=== PATIENT | female | born 1970 | race Caucasian/White ===

== ENCOUNTER 2020-05-28 07:48 | Outpatient (CLI) | payer OTHER, SELFPAY ==
--- NOTE | 2020-05-28 07:57 | MM_ITS ---
WS: [id number] BILATERAL DIGITAL SCREENING MAMMOGRAPHY WITH CAD CLINICAL INFORMATION: SCREENING HISTORY: Screening mammogram. No current complaints. COMPARISON: TECHNIQUE: Bilateral CC and MLO views. FINDINGS: Scattered fibroglandular densities bilaterally. No suspicious focal mass, asymmetry, calcifications, or architectural distortion. No evidence of malignancy. MM/[place] [id number] IMPRESSION: BI-RADS: 1-Negative FOLLOW UP: 1 Year Follow-up Recommend return to annual screening mammography.
== END 2020-05-28 07:49 | disposition home or self-care (01) ==
LOC: RADSHAW 07:50
PROVIDERS: Visit Provider Nurse Practitioner Family
DX: Z12.31 Encounter for screening mammogram for malignant neoplasm of breast (principal)
CPT/HCPCS: 77067

== ENCOUNTER 2020-08-02 18:16 | Outpatient (CLI) | payer SELFPAY ==
[2020-08-02 19:35] LABS: Basophils # 0.1 10^3/uL (0.0-0.1); Basophils % 0.6 %; Eosinophils # 0.1 10^3/uL (0.0-0.8); Hematocrit 44.5 % (37.0-47.0); Hemoglobin 14.6 g/dL (11.5-15.3); Lymphocytes # 3.3 10^3/uL (0.8-4.8); Lymphocytes % 25.8 %; Mean Corpuscular HGB Conc 32.8 g/dL (30.0-36.0); Mean Corpuscular Hemoglobin 29.6 pg (28.0-34.0); Mean Corpuscular Volume 90.1 fL (81-99); Mean Platelet Volume 9.7 fL (7.4-10.4); Monocytes # 0.9 10^3/uL (0.2-0.9); Monocytes % 7.2 %; Neutrophils # 8.26 10^3/uL (1.8-7.7); Neutrophils % 65.1 %; Nucleated Red Blood Cells % 0 %; Platelet Count 368 10^3/cmm (130-400); Red Blood Count 4.94 10^6/uL (4.1-5.3); Red Cell Distribution Width 11.8 % (12.1-15.1); White Blood Count 12.7 10^3/uL (4.0-10.0)
[2020-08-02 19:56] LABS: Alanine Aminotransferase 37 U/L (0-33); Albumin Level 4.5 g/dL (3.5-5.2); Alkaline Phosphatase 79 IU/L (35-105); Anion Gap 17.5 (5-19); Aspartate Amino Transferase 24 U/L (0-32); Blood Urea Nitrogen 9 mg/dL (6-20); Calcium 9.2 mg/dL (8.5-10.5); Carbon Dioxide 21 mmol/L (22-29); Chloride 101 mmol/L (98-107); Glomerular Filtration Rate 87.9 mL/min (90-130); Glucose 97 mg/dL (65-115); Osmolality Calculated 278 mOsm/kg (285-295); Potassium 3.5 mmol/L (3.5-5.1); Sodium 136 mmol/L (136-145); Total Bilirubin 0.2 mg/dL (0.15-1.2); Total Protein 8.5 g/dL (6.6-8.7)
== END 2020-08-02 18:17 | disposition home or self-care (01) ==
LOC: LAB 18:18
PROVIDERS: Visit Provider General Practice
DX: N17.0 Acute kidney failure with tubular necrosis (principal)
CPT/HCPCS: 80053; 85025

== ENCOUNTER 2021-07-15 09:07 | Outpatient (CLI) | payer OTHER, SELFPAY ==
--- NOTE | 2021-07-15 09:13 | MM_ITS ---
WS: [id number] SCREENING DIGITAL MAMMOGRAM WITH CAD HISTORY: SCREENING COMPARISON: 05/28/2020, 01/18/2018 Bilateral CC and MLO views submitted. Computer aided detection analyzed. Breast composition: There are scattered areas of fibroglandular density. Asymmetry is new upper outer quadrant of the LEFT breast posteriorly near 2:00. This asymmetry measures 5 mm with mild irregulari ty. MM/[place] [id number] IMPRESSION: BI-RADS: 0-Incomplete: Need additional imaging evaluation FOLLOW UP: Need Additional Imaging LEFT breast: Spot compression views (CC and MLO). True ML. Ultrasound to follow if abnormality persists.
== END 2021-07-15 09:08 | disposition home or self-care (01) ==
LOC: RADSHAW 09:12
PROVIDERS: Visit Provider Family Medicine
DX: Z12.31 Encounter for screening mammogram for malignant neoplasm of breast (principal)
CPT/HCPCS: 77067

== ENCOUNTER 2021-07-17 13:17 | Outpatient (CLI) | payer OTHER, SELFPAY ==
--- NOTE | 2021-07-17 13:27 | US_ITS ---
WS: [id number] ADDITIONAL VIEWS LEFT MAMMOGRAM LEFT BREAST ULTRASOUND HISTORY: ASYMMETRY LT BREAST COMPARISON: 07/15/2021 and 05/28/2020 LEFT MAMMOGRAM: Spot compression views and true ML. 8 mm irregular nodule in the upper outer quadrant LEFT breast near 2:00 posteriorly persists with add itional views. Margins are ill-defined. No distortion. LEFT BREAST ULTRASOUND 2-D and color Doppler imaging submitted. Hypoechoic slightly spiculated mass in the LEFT breast at 2:00, 3 cm from the nipple. This mass corre sponds in size and location to the mammographic abnormality. Mass measures 6 x 6 x 6 mm. No significa nt increased vascularity. There are a few adjacent small benign lymph nodes in the upper outer quadra nt also. US/US breast LT limited* [id number] IMPRESSION: BI-RADS: 4-Suspicious Finding-Biopsy Should Be Considered FOLLOW UP: Biopsy Recommended Ultrasound-guided biopsy recommended of the LEFT breast mass at 2:00. Notified Renetta Pereira MD at 07/17/2021 2:30 PM.
== END 2021-07-17 13:18 | disposition home or self-care (01) ==
DX: N64.89 Other specified disorders of breast (principal); N63.21 Unspecified lump in the left breast, upper outer quadrant
CPT/HCPCS: 76642; 77065

== ENCOUNTER 2021-08-01 08:08 | Outpatient (CLI) | payer MEDICAID, SELFPAY ==
--- NOTE | 2021-08-01 08:28 | US_ITS ---
WS: [id number] ULTRASOUND-GUIDED LEFT BREAST BIOPSY CLINICAL INFORMATION: L BREAST MASS COMPARISON: None. FINDINGS: The procedure including risks, benefits, and complications were discussed with the patient who agreed to proceed. Using sterile technique patient was prepped and draped in the usual sterile fashion. Aft er 1% lidocaine utilizing real-time ultrasound guidance 5 14-gauge cores were obtained of the left br east lesion at the 2 o'clock position. Subsequently a titanium clip was placed in the biopsy cavity. No immediate complications. Pathology demonstrates Breast, left breast mass , ultrasound-guided biopsy: -Poorly differentiated invasive ductal carcinoma. -Messina Hoffmann grade 3 (score 8). -Breast prognostic profile has been performed. US/[place] [id number] IMPRESSION: 1. Uncomplicated ultrasound-guided left breast biopsy. 2. The pathology demonstrates POORLY DIFFERENTIATED INVASIVE DUCTAL CARCINOMA 3. Breast cancer prognostic profile pending. BI-RADS: 6-Known Biopsy-Proven Malignancy FOLLOW UP: Surgical Biopsy Recommended RECOMMEND BREAST SURGERY CONSULTATION.
[2021-08-09 08:40] LABS: Miscellaneous Test See Scanned Lab Rpt
== END 2021-08-01 08:09 | disposition home or self-care (01) ==
PROVIDERS: Visit Provider Family Medicine
DX: C50.412 Malignant neoplasm of upper-outer quadrant of left female breast (principal)
CPT/HCPCS: 19083; 88305; 88361; 88367; 88374

== ENCOUNTER → 2021-08-16 11:00 | Outpatient (BNVA) | payer MEDICAID, SELFPAY | PROVIDERS: Visit Provider Surgery | DX: C50.912 Malignant neoplasm of unspecified site of left female breast (principal); Z20.822 Contact with and (suspected) exposure to COVID-19 | CPT/HCPCS: 87635 ==

== ENCOUNTER 2021-08-22 07:29 | Day surgery (SDC) | payer MEDICAID, SELFPAY ==
[2021-08-21 12:23] VITALS: BMI 34.2
[2021-08-22] VITALS (9 sets, daily range): BP systolic 144–169; BP diastolic 79–97; PULSE 71–82; RESP 16–20; TEMP 36.4–36.9; O2SAT 94–97
--- NOTE | 2021-08-22 | US_ITS ---
WS: [id number] ULTRASOUND-GUIDED LEFT BREAST NEEDLE LOCALIZATION HISTORY: left breast mass at 2:00 Procedure, risks and complications were explained to the patient. Consent is obtained. Skin is cleansed with ChloraPrep and anesthetized with 1% buffered lidocaine. Needle and guidewire pl aced to the area of concern with no complications. Masses localized at 2:00, 3 cm from the nipple and contains a clip. Ultrasound guidance performed during the needle localization. Guidewire is left wit hin the lesion. Guidewire secured and no complications encountered. Patient is being transported to t OR suite. Specimen radiograph is also reviewed. Soft tissue lesion is present in the specimen. RECOMMENDATIONS: Follow-up with Dr. Cruz and oncology. Please see the entire pathology report for a dditional details. US/US breast surgical specimen IMPRESSION: 1. Uncomplicated wire localization of the LEFT breast mass at 2:00. PATHOLOGY RESULTS: Invasive carcinoma of the breast.
--- NOTE | 2021-08-22 08:21 | NM_ITS ---
WS: [id number] NUCLEAR MEDICINE SENTINEL LYMPH NODE IMAGING HISTORY: L Breast Lumpectomy COMPARISON: None available. TECHNIQUE: The patient was injected with 1.1 mCi of Technetium 99 ultra filtered sulfur colloid. Inje ction is intradermal in a periareolar location. Four aliquots are used. NM/NM sentinel node inject [id number] IMPRESSION: Uncomplicated LEFT breast sentinel node injection.
--- NOTE | 2021-08-22 08:36 | US_ITS ---
WS: [id number] ULTRASOUND-GUIDED LEFT BREAST NEEDLE LOCALIZATION HISTORY: left breast mass at 2:00 Procedure, risks and complications were explained to the patient. Consent is obtained. Skin is cleansed with ChloraPrep and anesthetized with 1% buffered lidocaine. Needle and guidewire pl aced to the area of concern with no complications. Masses localized at 2:00, 3 cm from the nipple and contains a clip. Ultrasound guidance performed during the needle localization. Guidewire is left wit hin the lesion. Guidewire secured and no complications encountered. Patient is being transported to t OR suite. Specimen radiograph is also reviewed. Soft tissue lesion is present in the specimen. RECOMMENDATIONS: Follow-up with Dr. Cruz and oncology. Please see the entire pathology report for a dditional details. US/[place] [id number] IMPRESSION: 1. Uncomplicated wire localization of the LEFT breast mass at 2:00. PATHOLOGY RESULTS: Invasive carcinoma of the breast.
--- NOTE | 2021-08-22 10:28 | ANES.PREANE2 ---
Pre-Anesthetic Assessment Pre-Anesthetic Assessment: Height/Weight: Height 1.55 m Weight 82.1 kg Preop Diagnosis: Left breast cancer Proposed Procedure: Operation Date: 08/22/21 11:45 Proposed Procedures p Sentinal Lymph Node Biopsy [id number] 43104 C50.912(Left) - Vitaly Cruz MD s breast lumpectomy(Left) - Vitaly Cruz MD Was Beta Ubcky taken within 24 hours: N/A Was Clonidine taken within 24 hours: N/A Last intake: Intake Last Liquid Date 08/21/21 Last Liquid Time 04:30 Last Solid Date 08/21/21 Last Solid Time 20:00 Social: Social History: No alcohol and No tobacco Exam: Pre-Anes Outpt Exam: alert, oriented x 3, clear to auscultation bilaterally and regular rate & rhythm Airway: Submandibular: WNL Cervical ROM: WNL MP: 3 Dentition: Caps History/ROS: No significant complaints Pulmonary: Pulmonary: None reported CV/HEM: CV/HEM: HTN : : None reported Hepatic: Hepatic: None reported GI: GI: None reported Metabolic: Comments: obesity Musc/skel: Musc/skel: None reported Neuropsych: Neuropsych: None reported Anesthetic Plan: ASA status: 2 Anesthesia: General PFSH Anesthesia PFSH: Medical History (Updated 08/13/21 @ 14:57 by Vitaly Cruz MD) Breast cancer, left Hypertension Social History Smoking and tobacco status: never smoked Female Reproductive History: Date of last menstrual period: 09/03/16 Data Anesthesia Cardiac Studies: No Data to Display
[2021-08-22] MEDS: sodium chloride 0.9% 1,000 ML 30 ML IV (10:43)
--- NOTE | 2021-08-22 11:03 | PC.NURSE ---
LEFT BREAST SENTINEL NODE INJECTION. 1.1 mCi Tc99m Filtered Sulfur Colloid by Dr Kaiser at 0830.
--- NOTE | 2021-08-22 11:15 | W.PM.OPSFHP ---
Same Day Surgery H&P Indication for Procedure/HPI DATE OF PROCEDURE: August 22, 2021 CHIEF COMPLAINT/INDICATIONFOR SURGICAL PROCEDURE: lumpectomy with SLNB PREOP DIAGNOSIS: Left breast cancer PLANNED PROCEDRUE: Operation Date: 08/22/21 11:45 Proposed Procedures p Sentinal Lymph Node Biopsy [id number] 26308 C50.912(Left) - Vitaly Cruz MD s breast lumpectomy(Left) - Vitaly Cruz MD Medications/Allergies* Home Medications Medication Instructions Recorded Confirmed Type diclofenac potassium 50 mg tablet 50 mg PO BID 08/13/21 08/21/21 History lisinopril 10 mg tablet 10 mg PO DAILY 08/13/21 08/22/21 History Allergies/Adverse Reactions Allergy/AdvReac Type Severity Reaction Status Date / Time codeine Allergy ALGY-Difficulty Verified 08/22/21 07:45 Breathing Current Medications: Generic Name Dose Route Start Last Admin Trade Name Freq PRN Reason Stop Dose Admin Sodium Chloride 1,000 mls @ 30 mls/hr 08/22/21 10:30 08/22/21 10:43 Sodium Chloride 0.9% IV 08/23/21 10:29 30 mls/hr .Q24H CRISTINA Administration Pertinent History/Comorbid Conditions* Medical History (Updated 08/13/21 @ 14:57 by Vitaly Cruz MD) Breast cancer, left Hypertension Social History Smoking and tobacco status: never smoked Pertinent Exam Findings alert, oriented x 3 and clear to auscultation bilaterally Recommendations Surgery/Procedure today Coding Level of Care Code Acute [employer] Processing Equipment [employer]ic for Marvin Ortiz
[2021-08-22] MEDS: lidocaine 1% INJ 20 mL XX (13:11)
--- NOTE | 2021-08-22 14:45 | PM.OP ---
Operative Report Date of procedure: August 22, 2021 Pre-op Diagnosis: Invasive ductal carcinoma left breast 2 o'clock position Post-op diagnosis: same Procedure Done: 1. Wire localization lumpectomy left breast with shave margin 2. Left axillary sentinel lymph node biopsy Specimens removed/disposition: 1. left breast lumpectomy - short stitch superior, long stitch lateral 2. Shave margins, superior, anterior, medial, posterior 3. Left axillary sentinel lymph node and small palpable lymph nodes Surgeon: Vitaly Cruz Anesthesia: General Condition: stable Disposition: PACU Procedure: The wire localization of the mammographic abnormality was performed by the radiologist under ultrasound guidance and the patient was transferred to operating room and placed under MAC after IV antibiotic had been administered. The left breast was prepped and draped in a manner . A curvilinear incision was made in the left axilla at the site marked with the gamma probe, subcutaneous tissue was divided and dissection was carried inferiorly towards the guidewire. The localization wire was grasped through the incision and using electrocautery the wire along with the breast tissue containing mammographic abnormality was dissected free from the surrounding tissue. Using 2-0 silk suture, short stitch was placed superiorly and a long stitch was placed laterally.shave margins were obtained from the lumpectomy cavity from the superior, medial, anterior and posterior aspect of the lumpectomy cavity and the outer edge was inked. Clips were applied along the edge of the lumpectomy cavity for radiation planning. A technetium sulfur colloid had been injected previously by the radiologist in the periareolar area. The subcutaneous tissue and clavipectoral fascia was divided with electrocautery and gentle dissection revealed radioactive lymph nodes. There were few palpable lymph nodes which were excised and the vascular bundle was clipped with 5 mm clips. Examination of the axilla did not reveal any other lymph nodes. 20 cc of 0.5% Marcaine mixed with 20 cc of 1% lidocaine was infiltrated around the lumpectomy cavity. The wound was irrigated with saline, hemostasis ensured with electrocautery and subcutaneous tissues approximated using 3-0 running Vicryl suture and skin was closed using running subcuticular 4-0 Monocryl sutures and Dermabond. Fluffs were used for pressure dressing. Patient was transferred to recovery room and stable condition The lumpectomy specimens were sent to mammography to obtain radiological confirmation of complete excision of the mammographic abnormality.
--- NOTE | 2021-08-22 14:48 | PC.NURSE ---
No c/o nausea. C/o 3/10 pain. Advised that she wait until a PO med in recovery. OPS nurse Nick notified and agreed that the PO med would be better than Fentanyl IV.
[2021-08-22] MEDS: HYDROcodone-acetaminophen 5-325 mg Tablet 1 TAB PO (15:20)
== END 2021-08-22 15:25 | disposition home or self-care (01) ==
PROVIDERS: Visit Provider Surgery
PROC: (CPT 19301; principal; 2021-08-22 11:45)
PROC: (CPT 19301; 2021-08-22 11:45)
DX: C50.912 Malignant neoplasm of unspecified site of left female breast (principal); I10 Essential (primary) hypertension; E66.9 Obesity, unspecified; Z68.34 Body mass index [BMI] 34.0-34.9, adult
CPT/HCPCS: 19301; 38500; 19285; 38792; 88307; 96365; A9541; C1889; J0690; J1100; J1885; J2405; J2704; J3010; J3490; J7030

== ENCOUNTER 2021-09-10 10:39 | Outpatient (CLI) | payer MEDICAID, SELFPAY ==
--- NOTE | 2021-09-10 18:20 | ONC CON_ITS ---
Dr. Gatica New Patient Note Patient: Lena Su Unit #: [id number]: 1970 Dicatated By: Alban Gatica M.D.Date of Visit: Sep 10, 2021 Onc MED New Patient/Consult Referring Physician: Dr. MARIS VALLADARES M.D. Chief Complaint: Breast cancer. History of Present Illness: This is a 51-year-old woman with grade 3 invasive ductal carcinoma of the left breast, stage IB (pT1b, pN0, M0), ER/CA negative and HER-2/lala negative. She has been in good general health. Her screening mammogram on 07/15/2021 was BI-RADS 0 with evidence of a new asymmetry in the upper outer quadrant of the left breast posteriorly at 2:00. Additional mammogram views and left breast ultrasound on 07/17/2021 were BI-RADS 4, suspicious. The mammogram showed an 8 mm irregular nodule with ill-defined margins in the upper outer quadrant of the left breast near 2:00 posteriorly. Ultrasound showed a hypoechoic slightly spiculated mass at 2:00 located 3 cm from the nipple. It measured 6 x 6 x 6 mm. Also noted were a few small benign-appearing nodes in the upper outer quadrant. Ultrasound directed biopsy of the left breast on 08/01/2021 showed grade 3 invasive ductal carcinoma. The breast prognostic profile showed ER negative at less than 1% and CA negative at less than 1%. The tumor was negative for overexpression of HER-2/lala, 1+ by IHC and amplification ratio by FISH of 1.0 with 2.6 HER-2 copies/cell. The Ki-67 was unfavorable at 60%. She was referred to Dr. Valladares and on 08/22/2021 she underwent left breast lumpectomy with axillary sentinel lymph node biopsy. Pathology on the lumpectomy showed grade 3 invasive ductal carcinoma measuring 0.7 cm in maximum diameter. The medial margin was narrowly free of invasive carcinoma by 1 to 2 mm. All other margins were greater than 5 mm. There was an extensive component of high-grade ductal carcinoma in situ involving the remainder of the lumpectomy specimen. The final margins were free of in situ carcinoma by at least 2 mm. There was no involvement in 3 lymph nodes. She is seen now for further management of the breast cancer. She says she feels fine, though she does complain that she is tired a lot. She has normal activity. ECOG score is 0. Her appetite is good and her weight has been stable. She has no fever, night sweats, or hot flashes. She had been on long-term therapy with Depo-Medrol for contraception. During that time she had no menstrual periods. It was stopped in June. She was told at that time that her test indicated that she was postmenopausal, but those reports are not available at this time. She does not complain of shortness of breath, cough, or chest pain, and she has no GI or complaints. She has no significant joint or bone pain. She has just occasional headaches. She sometimes has numbness in her hands when she first wakes up in the morning. She has no other focal neurologic symptoms. She has mild psoriasis. Past Medical History: Her medical history includes hypertension and mild psoriasis. Past Surgical History: She underwent ultrasound-guided biopsy of the left breast on 08/01/2021 and she underwent left breast lumpectomy with axillary sentinel lymph node biopsy on 08/22/2021. She has had no prior surgeries. Medications: Lisinopril 1 Tablet (of 10 mg) Oral daily Allergies: Codeine Sulfate Social History: Ms. Su is . She is a non-smoker. She does not drink alcohol. Family History: Both parents are living, father at age 85 and mother at age 74. He is being treated for prostate cancer. She has diabetes and coronary artery disease. A paternal aunt had lung cancer. There has been no other breast cancer or ovarian cancer in the family. Review Of Symptoms: Constitutional - She feels fine, but she does complain that she is tired a lot. She has normal activity. Appetite is good and weight is stable. No fever, night sweats, or hot flashes. ECOG score is 0, Eyes - No change in vision, ENMT - No hearing loss or tinnitus. No sinus congestion/drainage. No mouth sores. No sore throat or difficulty swallowing, Hematologic/Lymphatic - No abnormal bruising or bleeding, Respiratory - No shortness of breath. No cough. No pleuritic pain or hemoptysis, Cardiovascular - No angina pain. No palpitations, Gastrointestinal - No nausea or vomiting. No heartburn or acid reflux. No diarrhea or constipation. No blood in the stool or black stools, Genitourinary (F) - No dysuria or hematuria. No urinary frequency. No urgency or incontinence, Musculoskeletal - No joint or bone pain, Integumentary - She has mild psoriasis, Neurologic - She occasionally has headache. No dizziness. She occasionally has numbness in her hands when she first wakes up in the morning. No other focal neurologic symptoms, Psychiatric - No anxiety or depression. She takes NyQuil for insomnia. Vital Signs: Performed on Sep 10, 2021 11:49: 0, 0, 34.20 (HIGH), 1.81 sq.m, 61 in, 96 %, 80 /min, 16 /min, 131/85 mm(hg), 97.5 F (LOW), and 181 lbs (HIGH). Physical Examination: Constitutional - She appears to be in good general health, Eyes - Sclerae nonicteric. Conjunctivae clear, ENMT - No lesions noted in the oral cavity, Neck - No mass or thyromegaly, Hematologic/Lymphatic - No cervical or clavicular adenopathy, Respiratory - Lungs are clear with good air movement bilaterally, Cardiovascular - Heart rhythm is regular. There is no murmur, gallop, or rub noted, Breasts - The right breast shows no mass. There is a nodule palpable in the upper outer quadrant of the left breast just below the lumpectomy incision. There is no axillary adenopathy noted, Abdomen - Soft and non-tender. Liver and spleen are not enlarged. There is no abdominal mass or ascites noted and there is no inguinal adenopathy, Back/Spine - No spine or CVA tenderness noted, Extremities - No edema. Pedal pulses are palpable bilaterally, Integumentary - No suspicious skin lesions noted, Neurologic - No focal neurologic deficits noted. Problem List: 1. Grade 3 invasive ductal carcinoma of the left breast, stage IB (pT1b, pN0, M0), ER/CA negative and HER-2/lala negative. 2. Hypertension. 3. Mild psoriasis. Problems Addressed with this Encounter and Plan: Patient with grade 3 invasive ductal carcinoma of the left breast, stage IB (pT1b, pN0, M0), ER/CA negative and HER-2/lala negative. She had presented with abnormal screening mammogram. She underwent ultrasound-guided biopsy of the left breast on 08/01/2021 followed by left breast lumpectomy and axillary sentinel lymph node biopsy on 08/22/2021. The pathology findings were reviewed with the patient and we discussed the clinic complications. She has a grade 3 invasive ductal carcinoma of the left breast which is triple negative. It is a relatively small primary tumor and node-negative. We discussed the fact that adjuvant chemotherapy has been shown to prevent approximately 1/3 of breast cancer recurrences. Per NCCN guidelines, adjuvant chemotherapy would be recommended for a primary tumor greater than 1 cm. For a T1b primary adjuvant chemotherapy can be considered. With triple negative disease and a high Ki-67 index, I am inclined to recommend treatment with 4 cycles of docetaxel/cyclophosphamide. I reviewed potential side effects which may include nausea/vomiting, alopecia, fatigue, low blood counts, and neuropathy, among others. She is going to consider it. If she opts for treatment she will require placement of Port-A-Cath venous access device. She is aware that she will need to complete radiation to the left breast regardless of whether or not she takes the chemotherapy. Signed By: Alban Gatica M.D. <<Signature on File>>
== END 2021-09-10 10:40 | disposition home or self-care (01) ==
LOC: ONCMED 10:40
PROVIDERS: Visit Provider Internal Medicine Hematology & Oncology
DX: C50.812 Malignant neoplasm of overlapping sites of left female breast (principal); Z17.1 Estrogen receptor negative status [ER-]; I10 Essential (primary) hypertension; L40.8 Other psoriasis; Z79.899 Other long term (current) drug therapy; Z92.3 Personal history of irradiation
CPT/HCPCS: 99205

== ENCOUNTER 2021-09-19 06:27 | Outpatient (RCR) | payer MEDICAID, SELFPAY ==
--- NOTE | 2021-09-18 10:41 | N.ONRAD NP_ITS ---
Radiation Oncology Consultation Patient Name: Lena Su Date of : 1970 Date of Service: 09/18/2021 Attending Physician: Hayden Sullivan M.D. Lena Su was seen in consultation this morning at the request of Alban Gatica M.D. for consideration of adjuvant breast radiotherapy for the management of a recently diagnosed breast cancer. A screening mammogram (images were independently visualized in synapse) ordered on July 15, 2021 revealed a 5 mm asymmetry in the left upper quadrant of the breast. A unilateral mammogram with spot compression views confirmed the lesion. Ultrasonography demonstrated a 6 mm x 6 mm x 6 mm spiculated mass within the left breast at the 2 o'clock position, 3 cm from the nipple. Ultrasound-guided breast biopsy completed on August 01, 2021 diagnosed a grade 3 invasive ductal carcinoma. The breast cancer profile confirmed estrogen receptor, progesterone receptor, and HER-2 negativity. The Ki???67 was 60%. A wire localized left partial mastectomy with shave margin and sentinel lymph node biopsy was performed by Vitaly Cruz M.D. on August 22, 2021. The pathology report (personally reviewed in [employer]) confirmed a 0.7 cm grade 3 invasive ductal carcinoma. 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 Surgical margins were negative for the invasive carcinoma (5 mm) and DCIS (2 mm). A total of 3 sentinel lymph nodes were harvested without malignancy. The patient was evaluated for adjuvant left breast radiotherapy. I discussed the patient's AJCC pathological stage IB (T1bN0) specific to her breast cancer diagnosis and The National Comprehensive Cancer Network Guidelines for adjuvant radiotherapy. I also reviewed the classic study by NSABP comparing mastectomy, lumpectomy, and lumpectomy with radiotherapy and the Early Breast Cancer Trialist Collaborative Group meta-analysis. She is aware that the addition of radiotherapy to lumpectomy provides improvement in local control and overall survival. I have also recommended genetic testing considering triple negative disease. I would endorse a 3 week course of hypofractionated radiotherapy sequential to a surgical bed boost as per HANNY Guidelines. A computed tomographic radiotherapy planning scan in the treatment position will be acquired to identify the clinical target volumes. The potential toxicities of breast radiotherapy were reviewed. The patient has verbalized understanding would like to proceed as recommended. The patient's medical treatment plan was discussed with Alban Gatica M.D. Signed by: Dr. Hayden Sullivan 09/18/2021 10:41:36 AM
--- NOTE | 2021-09-19 | CT_ITS ---
Radiation Therapy Planning CT images; total exam DLP: 944.13 mGy-cm MTDD
== END 2021-09-22 23:59 | disposition home or self-care (01) ==
LOC: ONCMED 06:27
PROVIDERS: Referring Provider Internal Medicine Medical Oncology; Visit Provider Radiology Radiation Oncology
DX: Z51.0 Encounter for antineoplastic radiation therapy (principal); C50.412 Malignant neoplasm of upper-outer quadrant of left female breast; Z17.1 Estrogen receptor negative status [ER-]
CPT/HCPCS: 77280; 77295; 77300; 77332; 77334; 99205

== ENCOUNTER 2021-10-22 14:27 | Outpatient (RCR) | payer MEDICAID, SELFPAY ==
--- NOTE | 2021-10-01 15:56 | ONCRAD TMN_ITS ---
Radiation Oncology Treatment Management Note Patient Name: Lena Su Date of : 1970 Date of Service: 10/01/2021 Attending Physician: Hayden Sullivan M.D. Lena Su is a 51 year- old white female recently diagnosed pathological stage IB (T1bN0) poorly- differentiated invasive ductal carcinoma of the upper-outer quadrant of the left breast. The breast cancer profile confirmed estrogen receptor, progesterone receptor, and HER-2 negativity. The Ki???67 was 60%. A screening mammogram ordered on July 15, 2021 revealed a 5 mm asymmetry in the left upper quadrant of the breast. A unilateral mammogram with spot compression views confirmed the lesion. Ultrasonography demonstrated a 6 mm x 6 mm x 6 mm spiculated mass within the left breast at the 2 o'clock position, 3 cm from the nipple. Ultrasound-guided breast biopsy completed on August 01, 2021 diagnosed a grade 3 invasive ductal carcinoma. A wire localized left partial mastectomy with shave margin and sentinel lymph node biopsy was performed by Vitaly Cruz M.D. on August 22, 2021. The pathology report confirmed a 0.7 cm grade 3 invasive ductal carcinoma. 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 Surgical margins were negative for the invasive carcinoma (5 mm) and DCIS (2 mm). A total of 3 sentinel lymph nodes were harvested without malignancy. She has received 10.7 Gy of a prescribed 40 Gy delivered in the prone disposition with a 3D conformal radiotherapy plan utilizing opposed tangential portal castillo. An additional 10 Gy in 5 fractions will be administered to the surgical bed at the conclusion of the whole breast treatment as a consequence of the patient's age in accordance to HANNY Guidelines. Upon review of systems, she denied any breast complaints to radiotherapy. On physical examination, the patient weighed 186 lbs. Her temperature was 98.6 ???F and the blood pressure was 133/81 mmHg. Her pulse was 87 bpm and her respiratory rate was 18. There was no erythema within the treatment castillo of the left breast. Continue left breast radiotherapy as prescribed. Signed by: Dr. Hayden Sullivan 10/01/2021 3:55:43 PM
--- NOTE | 2021-10-08 16:03 | ONCRAD TMN_ITS ---
Radiation Oncology Treatment Management Note Patient Name: Lena Su Date of : 1970 Date of Service: 10/08/2021 Attending Physician: Hayden Sullivan M.D. Lena Su is a 51 year- old white female recently diagnosed pathological stage IB (T1bN0) poorly- differentiated invasive ductal carcinoma of the upper-outer quadrant of the left breast. The breast cancer profile confirmed estrogen receptor, progesterone receptor, and HER-2 negativity. The Ki???67 was 60%. A screening mammogram ordered on July 15, 2021 revealed a 5 mm asymmetry in the left upper quadrant of the breast. A unilateral mammogram with spot compression views confirmed the lesion. Ultrasonography demonstrated a 6 mm x 6 mm x 6 mm spiculated mass within the left breast at the 2 o'clock position, 3 cm from the nipple. Ultrasound-guided breast biopsy completed on August 01, 2021 diagnosed a grade 3 invasive ductal carcinoma. A wire localized left partial mastectomy with shave margin and sentinel lymph node biopsy was performed by Vitaly Cruz M.D. on August 22, 2021. The pathology report confirmed a 0.7 cm grade 3 invasive ductal carcinoma. 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 Surgical margins were negative for the invasive carcinoma (5 mm) and DCIS (2 mm). A total of 3 sentinel lymph nodes were harvested without malignancy. She has received 24 Gy of a prescribed 40 Gy delivered in the prone disposition with a 3D conformal radiotherapy plan utilizing opposed tangential portal castillo. An additional 10 Gy in 5 fractions will be administered to the surgical bed at the conclusion of the whole breast treatment as a consequence of the patient's age in accordance to HANNY Guidelines. Upon review of systems, she denied any breast complaints to radiotherapy. On physical examination, the patient weighed 186 lbs. Her temperature was 98.5 ???F and the blood pressure was 129/84 mmHg. Her pulse was 85 bpm and her respiratory rate was 20. There was no erythema within the treatment castillo of the left breast. Continue left breast radiotherapy as planned. Signed by: Dr. Hayden Sullivan 10/08/2021 4:02:22 PM
--- NOTE | 2021-10-14 16:03 | ONCRAD TMN_ITS ---
Radiation Oncology Treatment Management Note Patient Name: Lena Su Date of : 1970 Date of Service: 10/14/2021 Attending Physician: Hayden Sullivan M.D. Lena Su is a 51 year- old white female recently diagnosed pathological stage IB (T1bN0) poorly- differentiated invasive ductal carcinoma of the upper-outer quadrant of the left breast. The breast cancer profile confirmed estrogen receptor, progesterone receptor, and HER-2 negativity. The Ki???67 was 60%. A screening mammogram ordered on July 15, 2021 revealed a 5 mm asymmetry in the left upper quadrant of the breast. A unilateral mammogram with spot compression views confirmed the lesion. Ultrasonography demonstrated a 6 mm x 6 mm x 6 mm spiculated mass within the left breast at the 2 o'clock position, 3 cm from the nipple. Ultrasound-guided breast biopsy completed on August 01, 2021 diagnosed a grade 3 invasive ductal carcinoma. A wire localized left partial mastectomy with shave margin and sentinel lymph node biopsy was performed by Vitaly Cruz M.D. on August 22, 2021. The pathology report confirmed a 0.7 cm grade 3 invasive ductal carcinoma. 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 Surgical margins were negative for the invasive carcinoma (5 mm) and DCIS (2 mm). A total of 3 sentinel lymph nodes were harvested without malignancy. She has received 34.7 Gy of a prescribed 40 Gy delivered in the prone disposition with a 3D conformal radiotherapy plan utilizing opposed tangential portal castillo. An additional 10 Gy in 5 fractions will be administered to the surgical bed at the conclusion of the whole breast treatment as a consequence of the patient's age in accordance to HANNY Guidelines. Upon review of systems, she described breast pain. On physical examination, the patient weighed 186 lbs. Her temperature was 98.5 ???F and the blood pressure was 129/84 mmHg. Her pulse was 85 bpm and her respiratory rate was 20. There was no erythema within the treatment castillo of the left breast. Continue left breast radiotherapy as planned. I will prescribe Lorcet for pain. Signed by: Dr. Hayden Sullivan 10/14/2021 4:02:05 PM
--- NOTE | 2021-10-22 16:22 | ONCRAD TMN_ITS ---
Radiation Oncology Treatment Management Note Patient Name: Lena Su Date of : 1970 Date of Service: 10/22/2021 Attending Physician: Hayden Sullivan M.D. Lena Su is a 51 year- old white female recently diagnosed pathological stage IB (T1bN0) poorly- differentiated invasive ductal carcinoma of the upper-outer quadrant of the left breast. The breast cancer profile confirmed estrogen receptor, progesterone receptor, and HER-2 negativity. The Ki???67 was 60%. A screening mammogram ordered on July 15, 2021 revealed a 5 mm asymmetry in the left upper quadrant of the breast. A unilateral mammogram with spot compression views confirmed the lesion. Ultrasonography demonstrated a 6 mm x 6 mm x 6 mm spiculated mass within the left breast at the 2 o'clock position, 3 cm from the nipple. Ultrasound-guided breast biopsy completed on August 01, 2021 diagnosed a grade 3 invasive ductal carcinoma. A wire localized left partial mastectomy with shave margin and sentinel lymph node biopsy was performed by Vitaly Cruz M.D. on August 22, 2021. The pathology report confirmed a 0.7 cm grade 3 invasive ductal carcinoma. 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 Surgical margins were negative for the invasive carcinoma (5 mm) and DCIS (2 mm). A total of 3 sentinel lymph nodes were harvested without malignancy. She has received 44 Gy of a prescribed 50 Gy delivered in the prone disposition with a 3D conformal radiotherapy plan utilizing opposed tangential portal castillo. Upon review of systems, she described itching of the medial breast. On physical examination, the patient weighed 184 lbs. Her temperature was 98.4 ???F and the blood pressure was 129/86 mmHg. Her pulse was 80 bpm and her respiratory rate was 18. There was a grade II erythema within the treatment castillo of the left breast. Continue left breast radiotherapy as prescribed. Signed by: Dr. Hayden Sullivan 10/22/2021 4:20:48 PM
== END 2021-10-22 23:59 | disposition home or self-care (01) ==
LOC: ONCMED 14:27
PROVIDERS: Referring Provider Internal Medicine Medical Oncology; Visit Provider Radiology Radiation Oncology
DX: Z51.0 Encounter for antineoplastic radiation therapy (principal); C50.412 Malignant neoplasm of upper-outer quadrant of left female breast; Z17.1 Estrogen receptor negative status [ER-]; Z79.899 Other long term (current) drug therapy
CPT/HCPCS: 36415; 77014; 77307; 77334; 77336; 77387; 77412

== ENCOUNTER 2021-11-21 06:20 | Outpatient (RCR) | payer MEDICAID, SELFPAY ==
--- NOTE | 2021-10-25 09:51 | N.ONRD TS_ITS ---
Radiation OncologyTreatment Summary Patient Name: Lena Su Date of : 1970 Date of Service: 10/25/2021 Attending Physician: Hayden Sullivan M.D. Lena Su has completed adjuvant left breast radiotherapy for the management of a pathological stage IB (T1bN0) poorly- differentiated invasive ductal carcinoma of the upper-outer quadrant of the left breast. The breast cancer profile confirmed estrogen receptor, progesterone receptor, and HER-2 negativity. The Ki???67 was 60%. A wire localized left partial mastectomy with shave margin and sentinel lymph node biopsy was performed by Vitaly Cruz M.D. on August 22, 2021. The pathology report confirmed a 0.7 cm grade 3 invasive ductal carcinoma. 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 Surgical margins were negative for the invasive carcinoma (5 mm) and DCIS (2 mm). A total of 3 sentinel lymph nodes were harvested without malignancy. Daily radiotherapy was administered between the dates of September 26, 2021 through October 25, 2021. A prescribed dose of 50 Gy was delivered in 20 fractions encompassing 30 elapsed days. The left breast was treated with a 3-dimensional conformal radiotherapy plan in the prone position applying an opposed tangential portal field design treatment technique. The medial tangential field utilized a 108??? gantry angle with a collimator angle of 0???. An energy of 6 MV was prescribed. The field size measured 12.3 cm x 5.6 cm within the X-direction and 5.7 cm x 8.2 cm within the Y-direction. The SSD measured 95.9 cm with the field delivering 97 monitor units. A supplemental field was incorporated with high energy photons administering 91 monitor units. The lateral tangential field employed a gantry angle of 303??? with a collimator angle of 0???. The field size measured 5.6 cm x 12.3 cm within X-direction and 5.7 cm x 8.2 cm within the Y-direction. The measured SSD was 90.7 cm with the field allocating 101 monitor units. A photon energy of 15 MV was prescribed. The initial castillo commenced on September 26, 2021 and continued through October 16, 2021. A prescribed dose of 40 Gy was delivered in 15 fractions over 21 elapsed days. The surgical bed was then treated with a reduced opposed tangential field approach. The medial port utilized a gantry angle 100??? with an associated collimator angle of 0???. The field size measured 4.4 cm x 5.2 cm within the X direction and 5.2 cm x 4.2 cm within the Y direction. The measured SSD was 90.1 cm with the port apportioning 77 monitor units. A photon energy of 15 MV were prescribed. The lateral field employed a gantry angle of 282??? with an associated collimator angle 0???. The field size measured 5.7 cm x 4.9 cm within the X direction and 5.2 cm x 4.7 cm within the Y direction. The SSD measured 95.3 cm with the field disbursing 98 monitor units. Low energy photons were delivered. An additional port was constructed with a gantry angle of 140 and a 0 collimator angle. The field measured 5.3 cm x 5 cm within the X-direction and 5.2 cm x 4.7 cm within the Y-direction. The SSD measured 89.6 cm with the port allotting 48 monitor units. High energy photons were dispensed. The reduced ports started on October 21, 2021 and concluded October 25, 2021. An additional 10 Gy was allocated in 5 fractions over 5 elapsed days. All treatments were performed with the [employer] linear accelerator and an isocentric technique. The dose was calculated by Anisotropic Analytic Algorithm. The plan was normalized to deliver 95% of the prescription dose to 95% of the planning target volume. Signed by: Dr. Hayden Sullivan 10/25/2021 9:50:56 AM
--- NOTE | 2021-11-21 13:29 | ONCRAD EPV_ITS ---
Radiation Oncology Established Patient Visit Patient: Georges Paredes [id number] : 1970> Age: 51> Sex: Female> Dictated by: Dr. Gary Ramos Date of Service: 11/21/2021 Referring Physician(s) : Rosendo Cruz MD Diagnosis: C50.412 - Malignant neoplasm of upper-outer quadrant of left female breast, Diagnosed 09/10/2021 (Active) Stage IB, T1b, pN0, M0, G3, HER2 Neg, ER Neg, NC N Breast cancer. This is a 51-year-old woman with grade 3 invasive ductal carcinoma of the left breast, stage IB (pT1b, pN0, M0), ER/NC negative and HER-2/lala negative. She has been in good general health. Her screening mammogram on 07/15/2021 was BI-RADS 0 with evidence of a new asymmetry in the upper outer quadrant of the left breast posteriorly at 2:00. Additional mammogram views and left breast ultrasound on 07/17/2021 were BI-RADS 4, suspicious. The mammogram showed an 8 mm irregular nodule with ill-defined margins in the upper outer quadrant of the left breast near 2:00 posteriorly. Ultrasound showed a hypoechoic slightly spiculated mass at 2:00 located 3 cm from the nipple. It measured 6 x 6 x 6 mm. Also noted were a few small benign-appearing nodes in the upper outer quadrant. Ultrasound directed biopsy of the left breast on 08/01/2021 showed grade 3 invasive ductal carcinoma. The breast prognostic profile showed ER negative at less than 1% and NC negative at less than 1%. The tumor was negative for overexpression of HER-2/lala, 1+ by IHC and amplification ratio by FISH of 1.0 with 2.6 HER-2 copies/cell. The Ki-67 was unfavorable at 60%. She was referred to Dr. Cruz and on 08/22/2021 she underwent left breast lumpectomy with axillary sentinel lymph node biopsy. Pathology on the lumpectomy showed grade 3 invasive ductal carcinoma measuring 0.7 cm in maximum diameter. The medial margin was narrowly free of invasive carcinoma by 1 to 2 mm. All other margins were greater than 5 mm. There was an extensive component of high-grade ductal carcinoma in situ involving the remainder of the lumpectomy specimen. The final margins were free of in situ carcinoma by at least 2 mm. There was no involvement in 3 lymph nodes. She is seen now for further management of the breast cancer. She says she feels fine, though she does complain that she is tired a lot. She has normal activity. ECOG score is 0. Her appetite is good and her weight has been stable. She has no fever, night sweats, or hot flashes. She had been on long-term therapy with Depo-Medrol for contraception. During that time she had no menstrual periods. It was stopped in June. She was told at that time that her test indicated that she was postmenopausal, but those reports are not available at this time. She does not complain of shortness of breath, cough, or chest pain, and she has no GI or complaints. She has no significant joint or bone pain. She has just occasional headaches. She sometimes has numbness in her hands when she first wakes up in the morning. She has no other focal neurologic symptoms. She has mild psoriasis. Radiotherapy to Date: Course: Breast 2020, Treatment Site: Breast Ca ??? Left, Ref. ID: [id number], Energy: 15X/6X, Dose/Fx (cGy): 266.7, #Fx: 15 15, Dose Correction (cGy): 0, Total Dose (cGy): 4,000, Start Date: 09/26/2021, End Date: 10/16/2021, Elapsed Days: 20 Course: Breast 2020, Treatment Site: Revised Boost, Ref. ID: [id number], Energy: 15X/6X, Dose/Fx (cGy): 200, #Fx: 5 / 5, Dose Correction (cGy): 0, Total Dose (cGy): 932, Start Date: 10/21/2021, End Date: 10/25/2021, Elapsed Days: 4 Treatment Site: Breast Boost - 1 fx, Ref. ID: [id number], Energy: 15X, Dose/Fx (cGy): 68, #Fx: , Dose Correction (cGy): 0, Total Dose (cGy): 68, Start Date: 10/23/2021, End Date: 10/23/2021, Elapsed Days: 0 Current History: Mrs. Su returns for follow-up slightly more than 1 month after completing postoperative radiation given as part of breast conservation therapy. She had a small grade 3, triple negative breast cancer. She underwent a lumpectomy with clear margins and then proceeded to hypofractionated radiation. She has been doing well since completing radiation. She has noticed flashes of discomfort extending from the chest wall up toward the nipple areolar complex. She also has some soreness in the area of the tumor bed. She denies breast swelling or troublesome pain. She has not had any hand or arm swelling. She has noticed some tightness when trying to reach behind her back with the left arm. She also mentioned dark lesion on her left chest wall just posterior to the radiation volume. Current Medications: Acetaminophen, hYDROcodone-Acetaminophen, lisinopril, nightTime Severe Cold & Flu, polyethylene Glycol 3350. Allergies: Codeine Sulfate. Current Complaints / Review of Systems: . Vital Signs: Performed on 11/21/2021 11:20 AM BMI - 34.805 kg/m2 (high), Height - 61 in, Weight - 184.2 lbs, Temperature - 97.7 f, Pulse - 70 /min, Respiration - 20 /min, O2 Sat - 97 %, Pain - 0, Fatigue - 0 and BP - 118/ 79 mm(hg). Physical Exam: General: Alert and oriented x 3. No acute distress. HEENT: Normocephalic, atraumatic. Extraocular Movements Intact: NECK: Supple without supraclavicular or jugular lymphadenopathy. BREASTS: The right breast is normal in appearance and free of masses. The left breast has a good to excellent cosmetic result. There is mild hyperpigmentation. There is no moist or dry desquamation. The nipple areola complex is normal in appearance. The breast is soft and no masses are palpated. There is typical posttreatment induration of the tumor bed. There is mild tenderness in this area. There is no axillary lymphadenopathy on either side. Just posterior to the treatment field near the posterior axillary line, there is what appears to be a benign mole. I see no suspicious characteristics such as color variation, scaling, drainage, or bleeding. There is no erythema of the surrounding skin. No satellite lesions. LUNGS: Clear to auscultation bilaterally without rales, rhonchi or wheezes. HEART: Regular rate and rhythm, normal S1 and S2 without murmur, gallop or rub. MUSCULOSKELETAL: No tenderness or percussion pain over the axial skeleton, scapulae or pelvis. ABDOMEN: Soft, nontender, nondistended without masses or organomegaly. Bowell sounds are present. EXTREMITIES: No peripheral edema is identified. NEUROLOGIC: Cranial nerves II ???XII are grossly intact. Normal sensation, strength 5/5 in all extremities, normal gait, no ataxia. Performance Status: ECOG 0 Lab: None pending. Pathology: Primary, c50.412 - malignant neoplasm of upper-outer quadrant of left female breast, Diagnosed 09/10/2021 (active) stage ib, t1b, pn0, m0, g3, her2 neg, er neg, pr n. Impression: She is doing well. It appears she will have an excellent cosmetic result. I discussed with her that the flashes of discomfort and the soreness in the tumor bed area are likely to clear up in the next several months. I demonstrated an exercise for her to perform for the tightness in the left upper extremity when she tries to reach behind her back. I discussed the benign-appearing mole on her left lateral chest wall area. I discussed signs of malignancy and told her she should have it removed if any of them develop. She will be seeing Dr. Cruz in mid February and I asked her to point out this lesion to him as well. I discussed that she will be due for post lumpectomy mammography in late January or early February. We will order that study. She has not received any type of systemic therapy and is not being followed by medical oncology. I asked her to come back to see Dr. Sullivan in 6 months. At that time it can be worked out whether she will be primarily followed by Dr. Cruz or Dr. Sullivan or both. Signed by: 11/21/2021 1:27:37 PM <<Signature on File>> Time spent with patient: CPT Code: CPT Code:
== END 2021-11-22 23:59 | disposition home or self-care (01) ==
LOC: ONCMED 06:20
PROVIDERS: Visit Provider Specialist
DX: Z51.0 Encounter for antineoplastic radiation therapy (principal); C50.812 Malignant neoplasm of overlapping sites of left female breast; Z17.1 Estrogen receptor negative status [ER-]; Z90.12 Acquired absence of left breast and nipple
CPT/HCPCS: 77014; 77336; 77387; 77412; 77427; 99215

== ENCOUNTER 2021-11-27 09:06 | Outpatient (RCR) | payer MEDICAID, SELFPAY ==
--- NOTE | 2021-11-27 18:11 | ONC FU_ITS ---
Dr. Gatica Patient Follow-Up Note Patient: Lena Su Unit #: [id number]: 1970 Dicatated By: Alban Gatica M.D.Date of Visit:Nov 27, 2021 Onc Med Follow-up/Prog Note Chief Complaint: Breast cancer. 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 She had presented with an abnormal screening mammogram which showed a new asymmetry in the upper outer quadrant of the left breast posteriorly at 2:00. Additional mammogram views and left breast ultrasound on 07/17/2021 were BI-RADS 4, suspicious. The mammogram showed an 8 mm irregular nodule with ill-defined margins in the upper outer quadrant of the left breast near 2:00 posteriorly. Ultrasound showed a hypoechoic slightly spiculated mass at 2:00 located 3 cm from the nipple. It measured 6 x 6 x 6 mm. Also noted were a few small benign-appearing nodes in the upper outer quadrant. Ultrasound directed biopsy of the left breast on 08/01/2021 showed grade 3 invasive ductal carcinoma. The breast prognostic profile showed ER negative at less than 1% and FL negative at less than 1%. The tumor was negative for overexpression of HER-2/lala, 1+ by IHC and amplification ratio by FISH of 1.0 with 2.6 HER-2 copies/cell. The Ki-67 was unfavorable at 60%. She was referred to Dr. Cruz and on 08/22/2021 she underwent left breast lumpectomy with axillary sentinel lymph node biopsy. Pathology on the lumpectomy showed grade 3 invasive ductal carcinoma measuring 0.7 cm in maximum diameter. The medial margin was narrowly free of invasive carcinoma by 1 to 2 mm. All other margins were greater than 5 mm. There was an extensive component of high-grade ductal carcinoma in situ involving the remainder of the lumpectomy specimen. The final margins were free of in situ carcinoma by at least 2 mm. There was no involvement in 3 lymph nodes. With triple negative disease and with a high Ki-67, she was recommended to undergo adjuvant chemotherapy with 4 cycles of docetaxel/cyclophosphamide, though with stage IB disease the recommendation per NCCN guidelines was to consider adjuvant chemotherapy . After careful consideration, she opted not to take chemotherapy. In the meantime, she also had genetic screening, which was negative. She was then seen by Dr. Sullivan and she underwent adjuvant radiation to the left breast. She completed treatment on 10/25/2021 to a total dose of 5000 cGy administered in 20 fractions. She tolerated the treatment well. Her medical illnesses have otherwise been limited to hypertension and mild psoriasis. She has had no other surgeries. She is a non-smoker. She is seen for a follow-up visit. She has been feeling okay. She has pretty good energy. She is back to normal activity. Her appetite is good. She has no fever, night sweats, or hot flashes. She has occasional cough in the morning. She does not complain of shortness of breath or chest pain. She has no GI/ complaints other than occasional acid reflux. She has no significant joint or bone pain. She does not complain of headache or dizziness, and she has no focal neurologic symptoms. Medications: Acetaminophen 2 Tablet (of 325 mg) Tablet Oral PRN, Lisinopril 1 Tablet (of 10 mg) Tablet Oral daily, NightTime Severe Cold & Flu 15 mL (of 5-6.25-10-325 mg/15mL) Liquid Oral at bedtime Allergies: Codeine Sulfate Vital Signs: Performed on Nov 27, 2021 09:20 Height - 61.00 in Weight - 185.6 lbs (HIGH) BSA - 1.83 sq.m BMI - 35.07 (HIGH) Temperature - 98.0 F (LOW) Pulse - 81 /min Respiration - 17 /min BP - 106/75 mm(hg) O2 Sat - 99 % Pain - 0 Fatigue - 0 Physical Examination: Constitutional - She looks good generally, Eyes - Sclerae nonicteric. Conjunctivae clear, ENMT - No lesions noted in the oral cavity, Hematologic/Lymphatic - No cervical, clavicular, or axillary adenopathy, Respiratory - Lungs are clear with good air movement bilaterally, Cardiovascular - Heart rhythm is regular. There is no murmur, gallop, or rub noted, Abdomen - Soft. Liver and spleen are not enlarged. There is no abdominal mass or ascites noted and there is no inguinal adenopathy, Extremities - No edema, Integumentary - There is a small raised lesion on the left upper back laterally. It is pigmented, but with a slightly rough texture. It does not appear suspicious, Neurologic - No focal neurologic deficits noted. Problem List: 1. Grade 3 invasive ductal carcinoma of the left breast, stage IB (pT1b, pN0, M0), ER/FL negative and HER-2/lala negative. 2. Hypertension. 3. Mild psoriasis. 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 She had presented with abnormal screening mammogram. She underwent ultrasound-guided biopsy of the left breast on 08/01/2021 followed by left breast lumpectomy and axillary sentinel lymph node biopsy on 08/22/2021. Her primary tumor measured 0.7 cm in maximum diameter. There was no involvement in 3 axillary sentinel lymph nodes. The Ki-67 was high at 60%. The lumpectomy specimen also showed an extensive complement of high-grade ductal carcinoma in situ, but the final margins were free of in situ carcinoma by 2 mm. The closest margin to invasive carcinoma was the medial margin at 1 to 2 mm. With triple negative disease and a high Ki-67, she was recommended to undergo adjuvant chemotherapy with 4 cycles of docetaxel/cyclophosphamide. However, after careful consideration, she opted not to take chemotherapy. She was then underwent adjuvant radiation to the left breast. She completed treatment on 10/25/2021 to a total dose of 5000 cGy administered in 20 fractions. She tolerated the treatment well. During that time she also had genetic screening, which was negative. She will now be followed on expectant management. I have discussed this with Dr. Sullivan, and per NCCN guidelines her mammogram will be repeated at a 12-month interval, which pawan be due in June. I will see her for a follow-up visit at that time, or sooner as needed. Signed By: Alban Gatica M.D. <<Signature on File>>
== END 2021-12-23 23:59 | disposition home or self-care (01) ==
LOC: ONCMED 09:06
PROVIDERS: Visit Provider Specialist
DX: Z08 Encounter for follow-up examination after completed treatment for malignant neoplasm (principal); Z85.3 Personal history of malignant neoplasm of breast; Z90.12 Acquired absence of left breast and nipple; I10 Essential (primary) hypertension; L40.9 Psoriasis, unspecified; Z92.3 Personal history of irradiation
CPT/HCPCS: 99214

== ENCOUNTER → 2022-03-18 10:05 | Outpatient (BNVA) | payer MEDICAID, SELFPAY | PROVIDERS: Visit Provider Surgery | DX: C50.912 Malignant neoplasm of unspecified site of left female breast (principal) | CPT/HCPCS: 99214 ==

== ENCOUNTER 2022-05-05 10:10 | Outpatient (CLI) | payer MEDICAID, SELFPAY ==
--- NOTE | 2022-05-05 10:21 | MM_ITS ---
WS: [id number] DIAGNOSTIC BILATERAL DIGITAL BREAST TOMOSYNTHESIS MAMMOGRAPHY WITH CAD LEFT breast ultrasound, limited. HISTORY: History of LEFT breast cancer. Palpable abnormality at the surgical site. COMPARISON: 07/17/2021, 07/15/2021 and 05/28/2020. TECHNIQUE: Bilateral craniocaudad, mediolateral oblique, and mediolateral views are submitted with to mosynthesis and SM. Spot compression LEFT MLO. Computer aided detection utilized. Breast composition: There are scattered areas of fibroglandular density. Volume loss and trabecular t hickening throughout the LEFT breast. Postsurgical changes are noted in the upper-outer quadrant in t he posterior breast. These changes are difficult to visualize on the CC projection due to their poste rior position. Palpable marker does correspond to the surgical site. There is a increased density and asymmetry at the surgical site. This area will be further evaluated by ultrasound. LEFT breast ultrasound, limited. LEFT breast ultrasound is directed to the upper outer quadrant in the area of focal abnormality and d iscomfort. At the postsurgical site there is a small fluid collection which is probably a postoperati ve seroma with thick wall measuring 2.7 x 1.3 x 3.3 cm. No significant increased vascularity. There i s adjacent hypoechoic soft tissue without increased vascularity. MM/[place] [id number] IMPRESSION: BI-RADS: 3-Probably Benign FOLLOW UP: 6 Month Follow-up All the changes in the upper outer quadrant of the LEFT breast at the surgical site are satisfactory and acceptable for early post surgical and post treatment changes. If this area does not resolve and improve over time it should be reev aluated for possible developing recurrence of neoplasm. At this time there is n o focal area for which biopsy is recommended.
--- NOTE | 2022-05-05 10:57 | US_ITS ---
WS: [id number] DIAGNOSTIC BILATERAL DIGITAL BREAST TOMOSYNTHESIS MAMMOGRAPHY WITH CAD LEFT breast ultrasound, limited. HISTORY: History of LEFT breast cancer. Palpable abnormality at the surgical site. COMPARISON: 07/17/2021, 07/15/2021 and 05/28/2020. TECHNIQUE: Bilateral craniocaudad, mediolateral oblique, and mediolateral views are submitted with to mosynthesis and SM. Spot compression LEFT MLO. Computer aided detection utilized. Breast composition: There are scattered areas of fibroglandular density. Volume loss and trabecular t hickening throughout the LEFT breast. Postsurgical changes are noted in the upper-outer quadrant in t he posterior breast. These changes are difficult to visualize on the CC projection due to their poste rior position. Palpable marker does correspond to the surgical site. There is a increased density and asymmetry at the surgical site. This area will be further evaluated by ultrasound. LEFT breast ultrasound, limited. LEFT breast ultrasound is directed to the upper outer quadrant in the area of focal abnormality and d iscomfort. At the postsurgical site there is a small fluid collection which is probably a postoperati ve seroma with thick wall measuring 2.7 x 1.3 x 3.3 cm. No significant increased vascularity. There i s adjacent hypoechoic soft tissue without increased vascularity. US/US breast LT limited* [id number] IMPRESSION: BI-RADS: 3-Probably Benign FOLLOW UP: 6 Month Follow-up All the changes in the upper outer quadrant of the LEFT breast at the surgical site are satisfactory and acceptable for early post surgical and post treatment changes. If this area does not resolve and improve over time it should be reev aluated for possible developing recurrence of neoplasm. At this time there is n o focal area for which biopsy is recommended.
== END 2022-05-05 10:11 | disposition home or self-care (01) ==
LOC: RAD 10:13
PROVIDERS: PCP Internal Medicine Medical Oncology; Visit Provider Internal Medicine Medical Oncology
DX: Z85.3 Personal history of malignant neoplasm of breast (principal)
CPT/HCPCS: 76642; 77062

== ENCOUNTER 2022-05-16 10:57 | Oncology outpatient (recurring) (ONCR) | payer MEDICAID, SELFPAY ==
--- NOTE | 2022-05-16 11:20 | ONCRAD EPV_ITS ---
Radiation Oncology Follow-Up Note Patient Name: Lena Su Date of : 1970 Date of Service: 05/16/2022 Attending Physician: Hayden Sullivan M.D. Lena Su returned to my office this morning for a routinely scheduled post-radiotherapy follow-up appointment. She completed adjuvant left breast radiotherapy in October 2021 for the management of pathological stage IB (T1bN0) poorly- differentiated invasive ductal carcinoma of the upper-outer quadrant of the left breast. The breast cancer profile confirmed estrogen receptor, progesterone receptor, and HER-2 negativity. The Ki???67 was 60%. A wire localized left partial mastectomy with shave margin and sentinel lymph node biopsy was performed by Vitaly Cruz M.D. on August 22, 2021. The pathology report confirmed a 0.7 cm grade 3 invasive ductal carcinoma. 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 Surgical margins were negative for the invasive carcinoma (5 mm) and DCIS (2 mm). A total of 3 sentinel lymph nodes were harvested without malignancy. Daily radiotherapy was administered between the dates of September 26, 2021 through October 25, 2021. A prescribed dose of 50 Gy was delivered in 20 fractions encompassing 30 elapsed days. On review of systems, she did not report any breast complaints. On physical examination, the patient weighed 179 lbs. The temperature was 97.7???F and her blood pressure was 118/80 mmHg. The pulse was 72 bpm and the respiratory rate was 16 breaths per minute. Examination of the left breast did not reveal any significant erythema. Subtle hyperpigmentation was noted. In summary, Ms. Su returned for a routine follow-up appointment. There were no sequelae from treatment. She will continue follow-up as scheduled with her medical oncologist. Signed by: Dr. Hayden Sullivan 05/16/2022 11:19:08 AM
== END 2022-05-22 23:59 | disposition home or self-care (01) ==
PROVIDERS: PCP Internal Medicine Medical Oncology; Visit Provider Radiology Radiation Oncology
DX: C50.412 Malignant neoplasm of upper-outer quadrant of left female breast (principal); Z92.3 Personal history of irradiation
CPT/HCPCS: 99213

== ENCOUNTER 2022-06-23 12:55 | Oncology outpatient (recurring) (ONCR) | payer MEDICAID, SELFPAY | END 2022-07-23 23:59 | disposition home or self-care (01) | PROVIDERS: PCP Internal Medicine Medical Oncology; Visit Provider Internal Medicine Medical Oncology | DX: C50.412 Malignant neoplasm of upper-outer quadrant of left female breast (principal); Z17.1 Estrogen receptor negative status [ER-]; Z92.21 Personal history of antineoplastic chemotherapy; Z92.3 Personal history of irradiation; Z90.12 Acquired absence of left breast and nipple | CPT/HCPCS: 99214 ==

== ENCOUNTER 2022-11-05 09:32 | Outpatient (CLI) | payer MEDICAID, SELFPAY ==
--- NOTE | 2022-11-05 09:39 | MM_ITS ---
WS: [id number] DIAGNOSTIC LEFT DIGITAL TOMOSYNTHESIS MAMMOGRAPHY WITH CAD. LEFT breast ultrasound, limited HISTORY: Follow-up changes in the upper outer quadrant at the surgical site. COMPARISON: 05/05/2022, 07/15/2021 Technique: CC, MLO and ML views. Exaggerated LEFT CC and spot compression LEFT MLO. Breast composition: There are scattered areas of fibroglandular density. Postsurgical changes and cl ips in the upper outer quadrant of the LEFT breast. On the LEFT MLO projection there are areas of inc reased density and spiculation. With the additional imaging and spot compression these areas are less dense and less masslike. Very similar in appearance to the prior study. LEFT breast ultrasound: There is an oblique soft tissue mixed echogenicity consistent with postsurgical tract in the LEFT aldo ast at 2:00. Similar to the prior study. There is no increased vascularity. Changes of postoperative seroma and fibrotic tissue along the track. There is a hypoechoic area contiguous with the tract exte nding to the chest wall measuring 8 x 1 x 8 mm. Very similar to the prior study. There is no increase d vascularity and this is probably the postoperative bed with healing. MM/[place] [id number] IMPRESSION: BI-RADS: 3-Probably Benign FOLLOW UP: 6 Month Follow-up 1. Recommend 6 month follow-up LEFT mammogram and ultrasound. 2. I did discuss these findings with Dr. Gatica. If on clinical exam he feels there has been a change we may proceed with ultrasound-guided biopsy of the hyp oechoic soft tissue along the posterior chest wall which is contiguous with the postsurgical tract.
== END 2022-11-05 09:33 | disposition home or self-care (01) ==
LOC: RAD 09:34
PROVIDERS: PCP Internal Medicine Medical Oncology; Visit Provider Internal Medicine Medical Oncology
DX: C50.912 Malignant neoplasm of unspecified site of left female breast (principal)
CPT/HCPCS: 76642; 77061; G0279

== ENCOUNTER 2022-11-20 06:00 | Oncology outpatient (recurring) (ONCR) | payer MEDICAID, SELFPAY | END 2022-11-22 23:59 | disposition home or self-care (01) | LOC: ONCMED 11-28 18:30 | PROVIDERS: Visit Provider Internal Medicine Medical Oncology | DX: Z92.3 Personal history of irradiation; Z85.3 Personal history of malignant neoplasm of breast; Z08 Encounter for follow-up examination after completed treatment for malignant neoplasm ==

== ENCOUNTER 2023-05-18 12:41 | Outpatient (CLI) | payer MEDICAID, SELFPAY ==
--- NOTE | 2023-05-18 13:01 | MM_ITS ---
WS: [id number] DIAGNOSTIC BILATERAL DIGITAL BREAST TOMOSYNTHESIS MAMMOGRAPHY WITH CAD LEFT breast ultrasound, limited HISTORY: Follow-up for breast cancer COMPARISON: 11/05/2022, 05/05/2022 TECHNIQUE: Bilateral craniocaudad, mediolateral oblique, and mediolateral views are submitted with to mosynthesis and SM. Spot compression LEFT CC and MLO. Computer aided detection utilized. Breast composition: There are scattered areas of fibroglandular density. Post operative lumpectomy si te upper outer quadrant of the LEFT breast. Again noted is the focal asymmetry at the surgical site. Slightly improved since 11/05/2022. No increasing size of the soft tissue mass or irregularity. RIGHT breast is negative. LEFT breast ultrasound, limited. Ultrasound is directed to the 2:00 axis. There is a tract-like echogenicity measuring 10 x 10 x 10 mm . No increased vascularity. Central cystic component. This measures slightly less than on the prior e xamination. This has the most significant appearance for postoperative cavity. No new or increasing m ass. MM/[place] [id number] IMPRESSION: BI-RADS: 3-Probably Benign FOLLOW UP: 6 Month Follow-up Recommend diagnostic ultrasound follow-up in 6 months of the LEFT breast surgic al site. Favor the changes are benign and related to the postoperative lumpecto my site.
== END 2023-05-18 12:42 | disposition home or self-care (01) ==
PROVIDERS: PCP Nurse Practitioner; Visit Provider Internal Medicine Medical Oncology
DX: C50.412 Malignant neoplasm of upper-outer quadrant of left female breast (principal)
CPT/HCPCS: 76642; 77062; G0279

== ENCOUNTER 2023-05-21 12:51 | Oncology outpatient (recurring) (ONCR) | payer MEDICAID, SELFPAY ==
[2023-05-21 12:54] VITALS: BP 124/79; PULSE 73; RESP 18; TEMP 36.5; O2SAT 97
[2023-05-21 13:13] LABS: Basophils # 0.1 10^3/uL (0.0-0.1); Basophils % 0.6 %; Eosinophils # 0.1 10^3/uL (0.0-0.8); Eosinophils % 1.5 %; Hematocrit 40.7 % (37.0-47.0); Lymphocytes # 2.1 10^3/uL (0.8-4.8); Lymphocytes % 22.2 %; Mean Corpuscular HGB Conc 34.4 g/dL (30.0-36.0); Mean Corpuscular Hemoglobin 30.1 pg (28.0-34.0); Mean Corpuscular Volume 87.5 fl (81-99); Mean Platelet Volume 9.6 fL (7.4-10.4); Monocytes # 0.5 10^3/uL (0.2-0.9); Neutrophils # 6.57 10^3/uL (1.8-7.7); Neutrophils % 70.4 %; Nucleated Red Blood Cells % 0 %; Platelet Count 257 10^3/cmm (130-400); Red Blood Count 4.65 10^6/uL (4.1-5.3); Red Cell Distribution Width 11.8 % (12.1-15.1); White Blood Count 9.4 10^3/uL (4.0-10.0)
[2023-05-21 13:28] LABS: Alanine Aminotransferase 31 U/L (0-33); Alkaline Phosphatase 81 U/L (35-105); Anion Gap 16.8 (5-19); Aspartate Amino Transferase 23 U/L (0-32); Blood Urea Nitrogen 15 mg/dL (6-20); Calcium 9.2 mg/dL (8.5-10.5); Carbon Dioxide 21 mmol/L (22-29); Chloride 102 mmol/L (98-107); Globulin 3.3 g/dL (1.3-4.6); Glomerular Filtration Rate 74.7 mL/min (90-130); Glucose 189 mg/dL (65-115); Osmolality Calculated 288 mOsm/kg (285-295); Potassium 3.8 mmol/L (3.5-5.1); Sodium 136 mmol/L (136-145); Total Bilirubin 0.2 mg/dL (0.15-1.2); Total Protein 7.3 g/dL (6.6-8.7)
== END 2023-05-22 23:59 | disposition home or self-care (01) ==
PROVIDERS: PCP Nurse Practitioner; Visit Provider Internal Medicine Medical Oncology
DX: C50.412 Malignant neoplasm of upper-outer quadrant of left female breast (principal); I10 Essential (primary) hypertension; Z17.1 Estrogen receptor negative status [ER-]; Z92.3 Personal history of irradiation; Z98.890 Other specified postprocedural states; Z79.899 Other long term (current) drug therapy
CPT/HCPCS: 36415; 80053; 85025; 99214

== ENCOUNTER → 2023-09-09 11:05 | Outpatient (BNVA) | payer MEDICAID, SELFPAY | PROVIDERS: PCP Nurse Practitioner; Referring Provider Nurse Practitioner; Visit Provider Specialist | DX: M25.561 Pain in right knee (principal); G89.29 Other chronic pain; M25.761 Osteophyte, right knee | CPT/HCPCS: 73560; 73565; 99204 ==

== ENCOUNTER → 2023-10-21 09:57 | Outpatient (BNVA) | payer MEDICAID, SELFPAY | PROVIDERS: PCP Nurse Practitioner; Visit Provider Specialist | DX: M25.561 Pain in right knee (principal); G89.29 Other chronic pain | CPT/HCPCS: 99214 ==

== ENCOUNTER 2023-11-17 12:41 | Outpatient (CLI) | payer MEDICAID, SELFPAY ==
--- NOTE | 2023-11-17 12:49 | US_ITS ---
WS: [id number] ULTRASOUND BREAST LEFT TECHNIQUE: Ultrasound left breast focused area of concern. CLINICAL INFORMATION: 6 month follow-up recommendation COMPARISON: Ultrasound 05/18/2023 and 11/05/2022 FINDINGS: Ultrasound LEFT breast 2 o'clock position 4 cm from the nipple. Again seen is the postsurgical echog enic tract with lumpectomy cavity with central cystic component likely representing seroma. This is s imilar in appearance to the prior examination with the central cystic component measuring 7.5 x 9.7 x 5.7 mm. Postoperative scarring and seroma not significantly changed compared to 05/18/2023. However, this is improved in appearance compared to 11/05/2022. No other suspicious abnormalities. IMPRESSION: BI-RADS 2 benign Recommend annual diagnostic mammography.
== END 2023-11-17 12:42 | disposition home or self-care (01) ==
LOC: RAD 12:41
PROVIDERS: PCP Nurse Practitioner; Visit Provider Nurse Practitioner Family
DX: C50.412 Malignant neoplasm of upper-outer quadrant of left female breast (principal)
CPT/HCPCS: 76642

== ENCOUNTER 2023-11-19 11:39 | Oncology outpatient (recurring) (ONCR) | payer MEDICAID, SELFPAY ==
[2023-11-19 11:50] VITALS: BP 144/75; PULSE 66; RESP 16; TEMP 36.8; O2SAT 97
[2023-11-19 12:08] LABS: Basophils # 0.1 10^3/uL (0.0-0.1); Basophils % 0.9 %; Eosinophils # 0.1 10^3/uL (0.0-0.8); Eosinophils % 2.1 %; Hematocrit 41.9 % (36-47); Lymphocytes # 1.8 10^3/uL (0.8-4.8); Mean Corpuscular HGB Conc 34.1 g/dL (30-55); Mean Corpuscular Hemoglobin 29.7 pg (27-33); Mean Corpuscular Volume 86.9 fl (85-98); Mean Platelet Volume 9.6 fL (7.4-10.4); Monocytes # 0.4 10^3/uL (0.2-0.9); Monocytes % 5.6 %; Neutrophils # 4.35 10^3/uL (1.8-7.7); Neutrophils % 64.1 %; Nucleated Red Blood Cells % 0 %; Platelet Count 243 10^3/cmm (157-399); Red Blood Count 4.82 10^6/uL (3.85-5.65); Red Cell Distribution Width 11.8 % (12.1-15.1); White Blood Count 6.78 10^3/uL (3.29-11.43)
[2023-11-19 12:17] LABS: Alanine Aminotransferase 19 U/L (0-33); Albumin Level 4.3 g/dL (3.5-5.2); Alkaline Phosphatase 80 U/L (35-105); Anion Gap 13.9 (5-19); Aspartate Amino Transferase 17 U/L (0-32); Blood Urea Nitrogen 12 mg/dL (6-20); Calcium 9.2 mg/dL (8.5-10.5); Carbon Dioxide 26 mmol/L (22-29); Chloride 105 mmol/L (98-107); Globulin 2.9 g/dL (1.3-4.6); Glomerular Filtration Rate 86.9 mL/min (90-130); Glucose 140 mg/dL (65-115); Osmolality Calculated 294 mOsm/kg (285-295); Potassium 3.9 mmol/L (3.5-5.1); Sodium 141 mmol/L (136-145); Total Bilirubin 0.4 mg/dL (0.15-1.2); Total Protein 7.2 g/dL (6.6-8.7)
== END 2023-11-22 23:59 | disposition home or self-care (01) ==
PROVIDERS: Nurse Practitioner Family; PCP Nurse Practitioner; Visit Provider Internal Medicine Medical Oncology
DX: C50.412 Malignant neoplasm of upper-outer quadrant of left female breast (principal)
CPT/HCPCS: 36415; 80053; 85025; 99214

== ENCOUNTER → 2023-12-02 09:45 | Outpatient (BNVA) | payer MEDICAID, SELFPAY | PROVIDERS: PCP Nurse Practitioner; Visit Provider Specialist | DX: M25.561 Pain in right knee (principal) | CPT/HCPCS: 99213 ==

== ENCOUNTER 2024-05-25 09:54 | Outpatient (CLI) | payer MEDICAID, SELFPAY ==
--- NOTE | 2024-05-25 10:01 | MM_ITS ---
WS: [id number] BILATERAL 3D TOMOSYNTHESIS DIGITAL DIAGNOSTIC MAMMOGRAPHY WITH CAD CLINICAL INFORMATION: HX OF BREAST CANCER HISTORY: LEFT breast cancer COMPARISON: Multiple prior examinations most recent ultrasound 11/17/2023 TECHNIQUE: Bilateral CC, MLO, and ML views. FINDINGS: Scattered fibroglandular densities bilaterally. Postoperative changes lumpectomy upper outer LEFT aldo ast. Associated stable parenchymal fibrosis at the lumpectomy site along the chest wall.. No new susp icious parenchymal abnormalities. Stable treatment-related changes LEFT breast. Few incidental punctate calcifications at the lumpectomy site. No suspicious focal mass, asymmetry, calcifications, or architectural distortion. No evidence of oma gnancy. MM/[place] [id number] IMPRESSION: BI-RADS: 2-Benign FOLLOW UP: 1 Year Follow-up Recommend return to annual diagnostic mammography.
== END 2024-05-25 09:55 | disposition home or self-care (01) ==
LOC: RAD 09:55
PROVIDERS: PCP Nurse Practitioner; Visit Provider Nurse Practitioner Family
DX: Z12.31 Encounter for screening mammogram for malignant neoplasm of breast (principal); R92.323 Mammographic fibroglandular density, bilateral breasts; N60.32 Fibrosclerosis of left breast; R92.1 Mammographic calcification found on diagnostic imaging of breast; Z98.890 Other specified postprocedural states
CPT/HCPCS: 77062; G0279

== ENCOUNTER 2024-06-01 11:49 | Oncology outpatient (recurring) (ONCR) | payer MEDICAID, SELFPAY ==
[2024-06-01 12:21] LABS: Basophils # 0.1 10^3/uL (0.0-0.1); Basophils % 0.7 %; Eosinophils # 0.2 10^3/uL (0.0-0.8); Eosinophils % 1.6 %; Hematocrit 43.8 % (36-47); Lymphocytes # 2.1 10^3/uL (0.8-4.8); Mean Corpuscular Hemoglobin 30.5 pg (27-33); Mean Corpuscular Volume 89.8 fl (85-98); Mean Platelet Volume 9.4 fL (7.4-10.4); Monocytes # 0.7 10^3/uL (0.2-0.9); Monocytes % 7.2 %; Neutrophils # 6.18 10^3/uL (1.8-7.7); Neutrophils % 67.2 %; Nucleated Red Blood Cells % 0 %; Platelet Count 239 10^3/cmm (157-399); Red Blood Count 4.88 10^6/uL (3.85-5.65); Red Cell Distribution Width 11.8 % (12.1-15.1); White Blood Count 9.19 10^3/uL (3.29-11.43)
[2024-06-01 12:42] LABS: Alanine Aminotransferase 17 U/L (0-33); Albumin Level 4.3 g/dL (3.5-5.2); Alkaline Phosphatase 80 U/L (35-105); Anion Gap 14.7 (5-19); Aspartate Amino Transferase 18 U/L (0-32); Blood Urea Nitrogen 17 mg/dL (6-20); Calcium 9.3 mg/dL (8.5-10.5); Carbon Dioxide 27 mmol/L (22-29); Chloride 101 mmol/L (98-107); Globulin 3.1 g/dL (1.3-4.6); Glomerular Filtration Rate 86.9 mL/min (90-130); Glucose 96 mg/dL (65-115); Osmolality Calculated 287 mOsm/kg (285-295); Potassium 4.7 mmol/L (3.5-5.1); Sodium 138 mmol/L (136-145); Total Bilirubin 0.4 mg/dL (0.15-1.2); Total Protein 7.4 g/dL (6.6-8.7)
== END 2024-06-22 23:59 | disposition home or self-care (01) ==
LOC: RAD 11:50 → ONCMED 14:04 → RAD 06-22 11:17 → ONCMED 06-22 15:17 → RAD 06-23 → ONCMED 06-23 10:11
PROVIDERS: PCP Nurse Practitioner; Visit Provider Nurse Practitioner Family
DX: Z53.9 Procedure and treatment not carried out, unspecified reason (principal)
CPT/HCPCS: 36415; 80053; 85025; 99214

== ENCOUNTER → 2024-07-12 12:47 | Outpatient (BNVA) | payer MEDICAID, SELFPAY | PROVIDERS: PCP Nurse Practitioner; Visit Provider Nurse Practitioner Family | DX: L40.9 Psoriasis, unspecified (principal); Z92.3 Personal history of irradiation; L81.4 Other melanin hyperpigmentation; K82.1 Hydrops of gallbladder; D22.5 Melanocytic nevi of trunk | CPT/HCPCS: 11102; 99204 ==

== ENCOUNTER → 2024-08-22 08:19 | Outpatient (BNVA) | payer MEDICAID, SELFPAY | PROVIDERS: PCP Nurse Practitioner; Visit Provider Nurse Practitioner Family | DX: L90.0 Lichen sclerosus et atrophicus (principal); L40.0 Psoriasis vulgaris | CPT/HCPCS: 99214 ==

== ENCOUNTER 2024-12-01 12:35 | Oncology outpatient (recurring) (ONCR) | payer MEDICAID, SELFPAY ==
[2024-12-01 13:19] LABS: Basophils # 0.1 10^3/uL (0.0-0.1); Basophils % 0.8 %; Eosinophils # 0.2 10^3/uL (0.0-0.8); Eosinophils % 2.3 %; Lymphocytes # 2.6 10^3/uL (0.8-4.8); Lymphocytes % 27.6 %; Mean Corpuscular HGB Conc 34.3 g/dL (30-55); Mean Corpuscular Hemoglobin 29.5 pg (27-33); Mean Corpuscular Volume 85.9 fl (85-98); Monocytes # 0.8 10^3/uL (0.2-0.9); Monocytes % 8.2 %; Neutrophils # 5.65 10^3/uL (1.8-7.7); Neutrophils % 60.9 %; Nucleated Red Blood Cells % 0 %; Platelet Count 275 10^3/cmm (157-399); Red Blood Count 5.12 10^6/uL (3.85-5.65); Red Cell Distribution Width 11.8 % (12.1-15.1); White Blood Count 9.27 10^3/uL (3.29-11.43)
[2024-12-01 13:36] LABS: Alanine Aminotransferase 26 U/L (0-33); Albumin Level 4.5 g/dL (3.5-5.2); Alkaline Phosphatase 85 U/L (35-105); Anion Gap 15.2 (5-19); Aspartate Amino Transferase 22 U/L (0-32); Blood Urea Nitrogen 15 mg/dL (6-20); Calcium 9.5 mg/dL (8.5-10.5); Carbon Dioxide 25 mmol/L (22-29); Chloride 102 mmol/L (98-107); Creatinine Clr Calc Pharmacy 100.4796; Globulin 3.2 g/dL (1.3-4.6); Glomerular Filtration Rate 103.4 mL/min (90-130); Glucose 95 mg/dL (65-115); Osmolality Calculated 287 mOsm/kg (285-295); Potassium 4.2 mmol/L (3.5-5.1); Sodium 138 mmol/L (136-145); Total Bilirubin 0.3 mg/dL (0.15-1.2); Total Protein 7.7 g/dL (6.6-8.7)
== END 2024-12-23 23:59 | disposition home or self-care (01) ==
PROVIDERS: Nurse Practitioner Family; PCP Nurse Practitioner; Visit Provider Internal Medicine
DX: C50.412 Malignant neoplasm of upper-outer quadrant of left female breast (principal); Z92.3 Personal history of irradiation; L98.9 Disorder of the skin and subcutaneous tissue, unspecified
CPT/HCPCS: 36415; 80053; 85025; 99214

== ENCOUNTER → 2025-02-20 13:11 | Outpatient (BNVA) | payer MEDICAID, SELFPAY | PROVIDERS: PCP Nurse Practitioner; Visit Provider Nurse Practitioner Family | DX: L90.0 Lichen sclerosus et atrophicus (principal); L40.0 Psoriasis vulgaris; L29.89 Other pruritus; L21.8 Other seborrheic dermatitis | CPT/HCPCS: 99214 ==

== ENCOUNTER 2025-05-23 11:30 | Outpatient (CLI) | payer MEDICAID, SELFPAY ==
--- NOTE | 2025-05-23 11:37 | XR_ITS ---
WS: [id number] XR shoulder LT min 2V* [id number] REASON FOR EXAM: LEFT SHOULDER PAIN FINDINGS: Mild narrowing of the acromioclavicular joint space with mild subchondral sclerosis and osteophytosis. Glenohumeral joint space is not optimally demonstrated. There may be mild narrowing. There is mild subchondral sclerosis of the glenoid. No significant osteophytosis of the humeral head. Mild sclerosis in the greater biceps tuberosity. XR/XR shoulder LT min 2V* [id number] IMPRESSION: Mild osteoarthritis of the acromioclavicular joint. Probable mild osteoarthritis of the glenohumeral joint. Minimal rotator cuff tendon arthropathy.
== END 2025-05-23 11:31 | disposition home or self-care (01) ==
LOC: RAD 11:33
PROVIDERS: PCP Nurse Practitioner; Visit Provider Nurse Practitioner
DX: M19.012 Primary osteoarthritis, left shoulder (principal); M25.712 Osteophyte, left shoulder; R93.7 Abnormal findings on diagnostic imaging of other parts of musculoskeletal system
CPT/HCPCS: 73030

== ENCOUNTER 2025-05-31 13:49 | Outpatient (CLI) | payer MEDICAID, SELFPAY ==
--- NOTE | 2025-05-31 14:00 | MM_ITS ---
WS: [email or web address] BILATERAL 3D TOMOSYNTHESIS DIGITAL DIAGNOSTIC MAMMOGRAPHY WITH CAD CLINICAL INFORMATION: surveillance HISTORY: LEFT breast cancer with lumpectomy COMPARISON: 2023 TECHNIQUE: Bilateral CC, MLO, and ML views. FINDINGS: Scattered fibroglandular densities bilaterally. Postoperative changes lumpectomy upper outer LEFT breast. Parenchymal fibrosis along the chest wall with a few incidental punctate calcifications. No suspicious focal mass, asymmetry, calcifications, or architectural distortion. No evidence of malignancy. MM/MM diag tomosynthesis [id number] IMPRESSION: DENSITY: There are scattered areas of fibroglandular density. BI-RADS: 2 - Benign. FOLLOW UP: 1 Year Follow-up Recommend return to annual diagnostic mammography.
== END 2025-05-31 13:50 | disposition home or self-care (01) ==
LOC: RAD 13:50
PROVIDERS: PCP Nurse Practitioner; Visit Provider Nurse Practitioner Family
DX: Z08 Encounter for follow-up examination after completed treatment for malignant neoplasm (principal); Z85.3 Personal history of malignant neoplasm of breast
CPT/HCPCS: 77062; G0279

== ENCOUNTER 2025-06-01 12:30 | Oncology outpatient (recurring) (ONCR) | payer MEDICAID, SELFPAY ==
[2025-06-01 12:46] LABS: Hematocrit 40.0 % (36-47); Hemoglobin 13.50 g/dL (11.27-16.99); Mean Corpuscular HGB Conc 33.8 g/dL (30-55); Mean Corpuscular Hemoglobin 29.6 pg (27-33); Mean Corpuscular Volume 87.7 fl (85-98); Nucleated Red Blood Cells % 0 %; Platelet Count 239 10^3/cmm (157-399); Red Blood Count 4.56 10^6/uL (3.85-5.65); White Blood Count 9.07 10^3/uL (3.29-11.43)
[2025-06-01 13:11] LABS: Alanine Aminotransferase 18 U/L (0-33); Albumin Level 4.2 g/dL (3.5-5.2); Alkaline Phosphatase 65 U/L (35-105); Anion Gap 16.8 (5-19); Aspartate Amino Transferase 19 U/L (0-32); Blood Urea Nitrogen 16 mg/dL (6-20); Calcium 9.2 mg/dL (8.5-10.5); Carbon Dioxide 23 mmol/L (22-29); Chloride 104 mmol/L (98-107); Creatinine Clr Calc Pharmacy 78.6715; Globulin 3.2 g/dL (1.3-4.6); Glucose 93 mg/dL (65-115); Osmolality Calculated 291 mOsm/kg (285-295); Potassium 3.8 mmol/L (3.5-5.1); Sodium 140 mmol/L (136-145); Total Protein 7.4 g/dL (6.6-8.7)
== END 2025-06-22 23:59 | disposition home or self-care (01) ==
PROVIDERS: Nurse Practitioner Family; PCP Nurse Practitioner; Visit Provider Internal Medicine
DX: Z08 Encounter for follow-up examination after completed treatment for malignant neoplasm (principal); Z85.3 Personal history of malignant neoplasm of breast; Z92.3 Personal history of irradiation; L98.9 Disorder of the skin and subcutaneous tissue, unspecified; M25.512 Pain in left shoulder
CPT/HCPCS: 36415; 80053; 85025; 99213

== ENCOUNTER 2025-06-06 10:37 | Outpatient (CLI) | payer MEDICAID, SELFPAY ==
--- NOTE | 2025-06-06 10:43 | MR_ITS ---
WS: [id number] MRI LEFT SHOULDER HISTORY: PAIN IN L SHOULDER COMPARISON: Radiograph 05/23/2025 TECHNIQUE: Multiplanar sequences of the shoulder joint are submitted. Mild AC joint arthropathy. Mild thickening of the synovium. Small osteophytes from the distal clavicle. Mild subacromial impingement. Minimal fluid in the subacromial bursa. No os acromion. Biceps tendon positioned in the bicipital groove but there is a large split tear in the biceps tendon extending over several centimeters. Mild narrowing of the glenohumeral joint. There is a small joint effusion. No rotator cuff tear identified. There is significant thickening and intermediate signal in the distal supraspinatus tendon from tendinopathy. No tear identified. No rotator cuff muscle atrophy or edema. There is a small amount of fluid in the subscapularis recess. No labral tears are identified. MR/MR shoulder LT wo con* [id number] IMPRESSION: 1. Large split tear in the biceps tendon but no displacement from the bicipita l groove. 2. Moderate tendinopathy in the distal supraspinatus tendon. No rotator cuff t endon tears. 3. Mild AC joint arthritis. 4. Mild subacromial impingement. 5. No labral tear.
== END 2025-06-06 10:38 | disposition home or self-care (01) ==
LOC: RAD 10:37
PROVIDERS: PCP Nurse Practitioner; Visit Provider Nurse Practitioner
DX: M19.012 Primary osteoarthritis, left shoulder (principal); M75.42 Impingement syndrome of left shoulder; S46.212A Strain of muscle, fascia and tendon of other parts of biceps, left arm, initial encounter; X58.XXXA Exposure to other specified factors, initial encounter
CPT/HCPCS: 73221